=== PATIENT | male | born 1975 | race Two or more races ===

== ENCOUNTER 2019-10-23 07:59 | Observation (INO) ==
[2019-10-23] MEDS ORDERED: ONDANSETRON 4 MG/2 ML VIAL ONE (08:18)
[2019-10-23] MEDS ORDERED: HYDROmorphone 2 MG/1 ML VIAL ONE (08:19)
[2019-10-23] MEDS ORDERED: HYDROmorphone 2 MG/1 ML VIAL IV STA (08:22)
[2019-10-23] MEDS ORDERED: SODIUM CHLORIDE 0.9% 1,000 ML IV STA ×2 (08:22→10:27)
[2019-10-23] MEDS ORDERED: ONDANSETRON 4 MG/2 ML VIAL IV STA ×3 (08:22→11:31)
[2019-10-23 09:06] LABS: Basophils # 0.1 10*3/uL (0.0-0.2); Basophils % 0.5 % (0.0-0.8); Eosinophils # 0.1 10*3/uL (0.0-0.87); Eosinophils % 0.4 % (0.00-10.9); Hematocrit 36.3 VOL% (42.0-52.0); Hemoglobin 13.2 GM/DL (14.0-18.0); Immature Granulocytes % 0.6 %; Immature Granulocytes Absolute 0.09 #; Lymphocytes # 1.3 10*3/uL (1.4-4.0); Mean Corpuscular HGB Conc 36.4 GM/DL (32-36); Mean Corpuscular Volume 87.9 FL (87-102); Mean Platelet Volume 12.8 FL (9.6-12.0); Monocytes % 3.3 % (1.7-12.7); Neutrophils % 86.2 % (38.7-73.9); Platelet Count 142 T/CUMM (130-400); Red Blood Count 4.13 MC/CUMM (3.8-5.5); Red Cell Distribution Width 12.2 % (9.3-17.3); White Blood Count 14.6 T/CUMM (4-12)
[2019-10-23 09:24] LABS: Alanine Aminotransferase 17 U/L (16-61); Albumin 3.5 G/DL (3.4-5.0); Alkaline Phosphatase 115 U/L (45-117); Aspartate Amino Transferase 14 U/L (0-37); Blood Urea Nitrogen 16 MG/DL (7-18); Calcium 8.9 MG/DL (8.5-10.1); Estimated Glom Filtration Rate 105 ML/MIN; Glucose 329 MG/DL (74-106); Osmolality,Calculated 286.8 MOS/KG (273-304); Total Protein 7.2 G/DL (6.4-8.3)
[2019-10-23] MEDS ORDERED: PROMETHAZINE 25 MG/1 ML VIAL IM STA (11:21)
[2019-10-23] MEDS ORDERED: ONDANSETRON 4 MG/2 ML VIAL IV PRN (11:55)
[2019-10-23] MEDS ORDERED: MORPHINE 4 MG/1 ML VIAL IV PRN (11:55)
[2019-10-23] MEDS ORDERED: ACETAMINOPHEN 325 MG TABLET PO PRN (11:55)
[2019-10-23] MEDS ORDERED: PROMETHAZINE 25 MG/1 ML VIAL IM PRN (11:55)
[2019-10-23] MEDS ORDERED: GLUCAGON 1 MG VIAL IM PRN (12:00)
[2019-10-23] MEDS ORDERED: DEXTROSE 10% 250 ML BAG IV PRN (12:00)
[2019-10-23] MEDS ORDERED: METOCLOPRAMIDE 10 MG/2 ML VIAL IV SCH (12:00)
[2019-10-23] MEDS ORDERED: AZITHROMYCIN INJ 500 MG in SODIUM CHLORIDE 0.9% 250 ML IV STA (12:00)
[2019-10-23] MEDS ORDERED: LORazepam 2 MG/1 ML VIAL IV ONE (12:36)
[2019-10-23] MEDS: PANTOPRAZOLE 40 MG TABLET PO SCH (14:17)
[2019-10-23] MEDS: PIPERACILLIN/TAZOBACTAM 3,375 MG in SODIUM CHLORIDE 0.9% 100 ML IV SCH ×2 (14:53→21:37)
[2019-10-23] MEDS: PROCHLORPERAZINE 10 MG TABLET PO SCH ×2 (14:53→21:38)
[2019-10-23] MEDS: SODIUM CHLORIDE 0.9% 1,000 ML IV SCH ×2 (14:53→18:40)
[2019-10-23] MEDS: INSULIN REGULAR 100 UNIT/ML SUBCUT SCH ×2 (16:25→21:38)
[2019-10-23 18:42] LABS: Apearance,Urine CLEAR (Clear); Bilirubin,Urine Negative (Negative); Blood, Urine Small mg/dL (Negative); Glucose,Urine (UA) >=500 mg/dL (Negative); Ketones,Urine 20 mg/dL (Negative); Nitrite,Urine Negative (Negative); Protein,Urine 100 MG/DL; RBC,Urine 7 /HPF (0-4); Urine Color Straw (Yellow); Urine Specific Gravity 1.033 (1.001-1.035); Urine Urobilinogen < 2.0 EU/DL (0.2-1.0); WBC,Urine 1 /HPF (0-6)
[2019-10-24] MEDS: SODIUM CHLORIDE 0.9% 1,000 ML IV SCH (05:32)
[2019-10-24] MEDS: PIPERACILLIN/TAZOBACTAM 3,375 MG in SODIUM CHLORIDE 0.9% 100 ML IV SCH (05:38)
[2019-10-24 08:00] VITALS: BP 137/64
[2019-10-24] MEDS: PANTOPRAZOLE 40 MG TABLET PO SCH (08:28)
[2019-10-24] MEDS: PROCHLORPERAZINE 10 MG TABLET PO SCH (08:28)
[2019-10-24] MEDS: INSULIN REGULAR 100 UNIT/ML SUBCUT SCH (08:29)
== END 2019-10-24 10:32 | disposition home or self-care (01) ==
LOC: N.EDINP 07:59 → N.ED 07:59 → SUATTDRO 11:55 → N.2E 13:26
PROVIDERS: ADMIT Internal Medicine; ATTEND Internal Medicine